=== PATIENT | female | born 2000 | race Two or more races ===

== ENCOUNTER 2019-07-27 11:16 | Observation (INO) | payer OTHER ==
[~2019-07-27] VITALS: Ht 165.1 cm; Wt 105.2 kg
[2019-07-27 10:56] VITALS: BP 109/71
[~2019-07-27 11:16] MED LIST: PREN-217 PO
== END 2019-07-27 12:40 | disposition home or self-care (01) ==
LOC: 4S 11:16
PROVIDERS: ADMIT Obstetrics & Gynecology; ATTEND Obstetrics & Gynecology
DX: O09.33 Supervision of pregnancy with insufficient antenatal care, third trimester (principal); Z3A.38 38 weeks gestation of pregnancy
CPT/HCPCS: 59025; 81001; G0378

== ENCOUNTER 2019-07-30 08:00 | Observation (INO) | payer OTHER ==
[~2019-07-30] VITALS: Ht 162.6 cm; Wt 104.3 kg
[2019-07-30] MEDS ORDERED: PREN-217 PO (08:57)
[2019-07-30 09:07] VITALS: BP 111/56
== END 2019-07-30 13:45 | disposition home or self-care (01) ==
LOC: 4S 08:00
PROVIDERS: ADMIT Obstetrics & Gynecology; ATTEND Obstetrics & Gynecology
DX: O42.92 Full-term premature rupture of membranes, unspecified as to length of time between rupture and onset of labor (principal); O62.9 Abnormality of forces of labor, unspecified; Z3A.38 38 weeks gestation of pregnancy
CPT/HCPCS: 36415; 59025; 76805; 81001; 89060; G0378

== ENCOUNTER 2019-07-30 21:43 | Inpatient (IN) | payer OTHER ==
[~2019-07-30] VITALS: Ht 165.1 cm; Wt 132.0 kg
[2019-07-30] MEDS ORDERED: RINGERS SOLUTION,LACTATED 1,000 ML IV PRN (23:11)
[2019-07-30] MEDS ORDERED: CITRIC ACID/SODIUM CITRATE 30 ML SOLUTION UDCUP PO PRN (23:15)
[2019-07-30] MEDS ORDERED: METOCLOPRAMIDE HCL 5 MG/ML 2 ML VIAL IVP PRN (23:15)
[2019-07-30 23:46] LABS: BASOPHILS % (AUTO) 0.4 % (0.0-2.0); EOSINOPHILS % (AUTO) 0.7 % (1.0-6.0); HEMATOCRIT 36.4 % (36-46); HEMOGLOBIN 12.6 g/dL (12.0-16.0); LYMPHOCYTES # (AUTO) 1.9 K/uL (1.0-4.8); LYMPHOCYTES % (AUTO) 16.1 % (22.0-44.0); MEAN CORPUSCULAR HEMOGLOBIN 29.2 pg (26.0-34.0); MEAN CORPUSCULAR HGB CONC 34.7 G/dL (31.0-37.0); MEAN CORPUSCULAR VOLUME 84 fL (80-100); MONOCYTES # (AUTO) 0.8 K/uL (0.1-1.0); MONOCYTES % (AUTO) 7.1 % (2.0-9.0); NEUTROPHILS % (AUTO) 75.7 % (40.0-70.0); PLATELET COUNT (AUTO)-OB 363 K/uL (150-450); RED BLOOD CELL COUNT(AUTO) 4.32 MIL/uL (4.00-5.20); RED CELL DISTRIBUTION WIDTH 12.5 % (11.5-14.5)
[2019-07-30] MEDS: FentaNYL CITRATE-PF 100 MCG/2 ML VIAL IVP PRN (23:54)
[2019-07-30] MEDS: RINGERS SOLUTION,LACTATED 1,000 ML IV SCH (23:59)
[2019-07-31] MEDS ORDERED: OXYTOCIN 30 UNITS/LACT RINGERS 500 ML IV SCH (00:26)
[2019-07-31] MEDS ORDERED: AMPICILLIN SODIUM 2 GM/NS 100 ML IV ONE ×2 (00:30→12:30)
[2019-07-31] MEDS: FentaNYL CITRATE-PF 100 MCG/2 ML VIAL IVP PRN (00:33)
[2019-07-31] MEDS ORDERED: ONDANSETRON HCL 4 MG/2 ML VIAL IVP PRN ×2 (01:00→02:30)
[2019-07-31] MEDS ORDERED: ROPIVACAINE HCL/PF 0.2% 100 ML ED ONE (01:59)
[2019-07-31] MEDS ORDERED: ROPIVACAINE HCL/PF 0.2% 100 ML ED PRN (02:30)
[2019-07-31] MEDS ORDERED: DiphenhydrAMINE HCL 50 MG/ML VIAL IVP PRN (02:30)
[2019-07-31 03:27] VITALS: BP 121/59
[2019-07-31] MEDS ORDERED: INFLUENZA VIRUS VACCINE QVS 2019-20 (3YR+)/PF 60 MCG/0.5 ML SYRINGE IM ONE (04:15)
[2019-07-31] MEDS: AMPICILLIN SODIUM 1 GM/NS 50 ML IV SCH ×2 (04:31→08:28)
[2019-07-31] MEDS: RINGERS SOLUTION,LACTATED 1,000 ML IV SCH (07:01)
[2019-07-31] MEDS ORDERED: AZITHROMYCIN 250 MG TABLET PO ONE (09:00)
[2019-07-31] MEDS ORDERED: OXYTOCIN 30 UNITS/LACT RINGERS 500 ML IV ONE (11:40)
[2019-07-31] MEDS ORDERED: METHYLERGONOVINE MALEATE 0.2 MG/ML VIAL IM PRN (11:45)
[2019-07-31] MEDS ORDERED: GENTAMICIN 120 MG/NACL ISO-OSM 100 ML IV ONE (12:00)
[2019-07-31] MEDS ORDERED: ACETAMINOPHEN 1000 MG/ISO-OSM 100 ML IV ONE (12:00)
[2019-07-31] MEDS ORDERED: CLINDAMYCIN 600 MG/D5% WATER 50 ML IV ONE (12:00)
[2019-07-31] MEDS ORDERED: CLINDAMYCIN 900 MG/D5% WATER 50 ML IV ONE (12:30)
[2019-07-31] MEDS ORDERED: ACETAMINOPHEN 500 MG TABLET PO ONE (13:00)
[2019-07-31] MEDS ORDERED: RINGERS SOLUTION,LACTATED 1,000 ML IV ONE (13:34)
[2019-07-31] MEDS ORDERED: IBUPROFEN 600 MG TABLET PO PRN (13:45)
[2019-07-31] MEDS ORDERED: OxyCODONE HCL/ACETAMINOPHEN 5-325 MG TABLET PO PRN ×2 (13:45)
[2019-07-31] MEDS ORDERED: BENZOCAINE 20%/MENTHOL 56 GM SPRAY CANISTER TP PRN (13:45)
[2019-07-31] MEDS ORDERED: LANOLIN 7 GM OINTMENT TP PRN (13:45)
[2019-07-31] MEDS ORDERED: MEASLES/MUMPS/RUBELLA VACCINE, LIVE 0.5 ML/VIAL SQ ONE (13:45)
[2019-07-31] MEDS ORDERED: GLYCERIN/WITCH HAZEL LEAF 40 PADS JAR TP PRN (13:45)
[2019-07-31] MEDS ORDERED: MAGNESIUM HYDROXIDE SUSPENSION 30 ML UDCUP PO SCH (21:00)
[2019-08-01] MEDS ORDERED: IBUP-2071 PO (08:35)
[2019-08-01] MEDS ORDERED: DOCU-275 PO (08:36)
== END 2019-08-01 14:50 | disposition home or self-care (01) | DRG 807 ==
LOC: OBSVTOIN 21:43 → 4S 21:43
PROVIDERS: ADMIT Obstetrics & Gynecology; ATTEND Obstetrics & Gynecology
PROC: 10E0XZZ Delivery of Products of Conception, External Approach (ICD-10-PCS; principal; 2019-07-31)
PROC: 0UQGXZZ Repair Vagina, External Approach (ICD-10-PCS; 2019-07-31)
PROC: 3E0R3BZ Introduction of Anesthetic Agent into Spinal Canal, Percutaneous Approach (ICD-10-PCS; 2019-07-31)
PROC: 00HU33Z Insertion of Infusion Device into Spinal Canal, Percutaneous Approach (ICD-10-PCS; 2019-07-31)
PROC: 3E02340 Introduction of Influenza Vaccine into Muscle, Percutaneous Approach (ICD-10-PCS; 2019-07-31)
DX: O99.824 Streptococcus B carrier state complicating childbirth (principal); Z37.0 Single live birth; O71.4 Obstetric high vaginal laceration alone; Z3A.38 38 weeks gestation of pregnancy; Z23 Encounter for immunization
CPT/HCPCS: 86850; 86900; 86901; 87340; 88307; 89060; 90686; J0131; J0290; J1580; J2405; J2590; J2795; J3010; J3490; J7120